=== PATIENT | female | born 1995 | race Caucasian/White ===

== ENCOUNTER 2020-04-19 18:05 | Emergency (ER) | payer OTHER, SELFPAY ==
[2020-04-19 18:08] VITALS: BP 105/65; PULSE 85; RESP 16; TEMP 36.6; O2SAT 100; BMI 16.5
[2020-04-19] MEDS: AMOXICILLIN/CLAV 875/125 MG 1 TAB PO (20:51)
[2020-04-19 20:52] VITALS: BP 100/66; PULSE 66; RESP 16; TEMP 36.6; O2SAT 100
--- NOTE | 2020-04-20 05:32 | ED_ITS ---
HPI - URI/Sore Throat General Chief Complaint: Upper Respiratory Symptoms Stated Complaint: HEADACHE SORE THROAT Time Seen by Provider: 04/19/20 20:49 Source: patient Mode of arrival: Ambulatory Limitations: no limitations History of Present Illness HPI Narrative: 24F nonsmoker with noncontributory medical history presents with a chief complaint of 3 days of worsening sore throat, difficulty swallowing and swollen lymph nodes. She denies any fever chills. She has had no runny nose, sneezing or cough. She denies any chest pain or shortness of breath. She is not dizzy nor weak or lightheaded. SHe denies N/V/D. MD Complaint: sore throat Onset (ago): day(s) Duration: progressively worsening Severity: moderate Relieving factors: nothing Exacerbating factors: swallowing Able to tolerate fluids by mouth: Yes Associated symptoms: sore throat Treatments prior to arrival: acetaminophen and ibuprofen Related Data Previous Rx's Medication Instructions Recorded amoxicillin-pot clavulanate 1 tab PO BID #20 tab 04/19/20 [Augmentin] Allergies Allergy/AdvReac Type Severity Reaction Status Date / Time Sulfa (Sulfonamide Allergy Intermediate Hives Verified 04/19/20 18:08 Antibiotics) Review of Systems Constitutional Constitutional: Denies chills, Denies fatigue, Denies fever(s), Denies frequent falls, Denies lethargy and Denies weakness Eyes Eyes: Denies change in vision, Denies eye discharge, Denies irritation and Denies loss of vision ENT Ears, Nose, Mouth, and Throat: Denies change in voice, Denies dizziness, Denies neck pain, Reports odynophagia, Reports sore throat and Reports throat swelling Cardiovascular Cardiovascular: Denies chest pain, Denies irregular heart rhythm, Denies lightheadedness, Denies palpitations, Denies dyspnea, Denies dyspnea on exertion and Denies orthopnea Respiratory Respiratory: Denies cough, Denies dyspnea, Denies dyspnea on exertion and Denies wheezing Gastrointestinal Gastrointestinal: Denies abdominal pain, Denies change in bowel habits, Denies diarrhea, Denies nausea, Reports odynophagia and Denies vomiting Musculoskeletal Musculoskeletal: Denies neck pain and Denies numbness Integumentary/Breasts Skin/Breast: Denies pruritus, Denies erythema, Denies rash and Denies wounds Neurologic Neurologic: Denies behavioral changes, Denies confusion, Denies dizziness, Denies frequent falls, Denies loss of vision, Denies numbness and Denies weakness Psychiatric Psychiatric: Denies anxiety, Denies behavioral changes, Denies confusion, Denies depression, Denies homicidal ideation and Denies suicidal ideation Endocrine Endocrine: Denies fatigue, Denies flushing and Denies palpitations Hematologic/Lymphatic Hematologic/Lymphatic: Denies easy bruising Allergic/Immunologic Allergic/Immunologic: Denies urticaria, Reports throat swelling and Denies wheez ing Patient History Social History Smoking Status: Never smoker Smoking Status: Never smoker alcohol intake frequency: 0-2 drinks per day Substance Use Type: does not use Exam Narrative Exam Narrative: GENERAL: [24] year old patient appears stated age. Well- nourished, well-developed patient, in mild distress. HEAD: Atraumatic. Normocephalic. EYES: Pupils equal round and reactive. Extraocular motions intact. No scleral icterus. No injection or drainage. ENT: Nose without bleeding, purulent drainage. Posterior pharynx with erythema, left sided tonsillar swelling with exudate, no sign of abscess. Tender left anterior cervical nodes. NECK: Trachea midline. Non tender CARDIOVASCULAR: Regular rate and rhythm without murmurs, gallops, or rubs. RESPIRATORY: Clear to auscultation. Breath sounds equal bilaterally. No wheezes, rales, or rhonchi. GASTROINTESTINAL: Abdomen soft, non-tender, nondistended. EXTREMITIES: No edema or joint tenderness. BACK: Nontender without deformity or crepitance. No flank tenderness. NEURO: AOx3. SKIN: No rash or erythema of visible areas Initial Vital Signs Initial Vital Signs: Vital Signs Temperature 97.8 F 04/19/20 18:08 Pulse Rate 85 04/19/20 18:08 Respiratory Rate 16 04/19/20 18:08 Blood Pressure 105/65 04/19/20 18:08 Pulse Oximetry 100 04/19/20 18:08 Course Orders Ordered: Discontinued Medications Amoxicillin/Clavulanate Potassium (Augmentin 875-125 Mg) 1 tab PO NOW ONE Stop: 04/19/20 20:50 Last Admin: 04/19/20 20:51 Dose: 1 tab Documented by: [facility] - URI/Sore Throat Lab Data Labs: Point of Care Testing Rapid Strep A Negative MDM Narrative Medical decision making narrative: Patient had negative rapid strep, however her symptoms are classic. She likely has a non Group A strain of strep. Sore throat with tonsillar swelling, exudate, tender nodes and lack of other typical URI symptoms. We discussed waiting a few days for culture results, but due to worsening symptoms we elect to treat. Discharge Plan Departure Patient Disposition: Home Clinical Impression: Pharyngitis Qualifiers: Pharyngitis/tonsillitis etiology: streptococcus Qualified Code(s): J02.0 - Streptococcal pharyngitis Discharge Date/Time: 04/19/20 21:00 Instructions: DI for Strep Throat Activity Restrictions/Additional Instructions: *You have been diagnosed with [acute pharyngitis, likely non group a streptococcal] *What to do: *Take medications as directed *Follow up with your primary care provider in 2-3 days, call for an appointment. Let them know you were seen in the Emergency Department and that we ask that you be seen in follow up *Return to ER if you should have any new, worsening or concerning symptoms Prescriptions: New amoxicillin-pot clavulanate [Augmentin] 875-125 mg tablet 1 tab PO BID Qty: 20 RF: 0 Stand Alone Forms: Work Release Note
== END 2020-04-19 21:00 | disposition home or self-care (01) ==
PROVIDERS: Emergency Provider Emergency Medicine
DX: J02.0 Streptococcal pharyngitis (principal)
CPT/HCPCS: 87070; 87077; 87147; 87880; 99283